=== PATIENT | male | born 1980 | race Caucasian/White ===

== ENCOUNTER 2017-04-12 16:52 | Emergency (ER) | payer MEDICAID ==
[~2017-04-12] VITALS: Ht 180.3 cm; Wt 106.0 kg
[2017-04-12 16:54] VITALS: BP 146/94; PULSE 88; RESP 20; TEMP 98.4; O2SAT 97
[2017-04-12] MEDS ORDERED: BACT800T5 PO (17:17)
[2017-04-12] MEDS ORDERED: CEPH500C PO (17:17)
[2017-04-12] MEDS ORDERED: CLOT1CRE8 TOPICAL (17:17)
--- NOTE | 2017-04-12 17:19 | PD ---
HPI Chief Complaint: Skin Problem Time Seen by Provider: 17:08 Travel History International Travel<30 days: No Contact w/Intl Traveler<30days: No Traveled to known affect area: No History of Present Illness HPI 36-year-old male presents to the emergency Department with complaint of a rash to his right foot 2 weeks. He said it started out being itchy. About a week ago the rash developed some blisters and some drainage. He was on vacation in [place] and the rash started and on his way back, about a week ago, he was seen in [place] at a hospital and was given prescriptions for oral antibiotics which she was unable to fill secondary to finances and cost of the prescriptions. Tetanus updated a week ago in [place]. He has been applying topical antibiotic ointment and doing Epson salt soaks with some improvement in the rash. He states it is still itchy. Denies fever, vomiting. Denies paresthesias, loss of sensation to the affected extremity. Has not tried taking any medications to alleviate his symptoms. No known allergies. Has no other medical complaints. No other modifying factors or associated signs and symptoms. PFSH Past Medical History Cardiovascular Problems: Yes (HTN) Social History Tobacco Use: No Allergies-Medications (Allergen,Severity, Reaction): Coded Allergies: No Known Allergies (Unverified , 04/12/17) Reported Meds & Prescriptions Reported Meds & Active Scripts Active Clotrimazole AF Topical (Clotrimazole) 1% Cream 1 Applic TOPICAL BID Cephalexin 500 Mg Cap 500 Mg PO Q6H 10 Days Bactrim DS (Sulfamethoxazole-Trimethoprim) 800-160 Mg Tab 1 Tab PO BID 10 Days Review of Systems Except as stated in HPI: all other systems reviewed are Neg Physical Exam Narrative GENERAL: Well-nourished, well-developed male patient, in no acute distress; afebrile, nontoxic-appearing SKIN: Warm and dry. Dorsal aspect of right foot, toes and in between the toes with areas of beefy-red erythemic areas; there are a couple areas that have pustules that are draining purulent drainage; rash appears to be consistent with tinea pedis with areas that appear infected; the foot is nonedematous and there is no sign of cellulitis; no lymphangitis. Right lower extremity is supple and nontense with 2+ pedal pulse and sensory intact. HEAD: Atraumatic. Normocephalic. EYES: Pupils equal and round. No scleral icterus. No injection or drainage. ENT: Mucosa pink and moist. Airway patent. NECK: Trachea midline. CARDIOVASCULAR: Regular rate. RESPIRATORY: No accessory muscle use. GASTROINTESTINAL: Obese. MUSCULOSKELETAL: No obvious deformities. No clubbing. No cyanosis. No edema. NEUROLOGICAL: Awake and alert. Oriented 3. No obvious cranial nerve deficits. Motor grossly within normal limits. Normal speech. PSYCHIATRIC: Appropriate mood and affect; insight and judgment normal. Data Data Last Documented VS Vital Signs Date Time Temp Pulse Resp B/P Pulse Ox O2 Delivery O2 Flow Rate FiO2 04/12/17 16:54 98.4 88 20 146/94 97 Room Air Orders Wound Culture And Gram Stain (04/12/17 17:19) [facility] Medical Decision Making Medical Screen Exam Complete: Yes Emergency Medical Condition: Yes Medical Record Reviewed: Yes Differential Diagnosis Tinea pedis, wound infection, infected blisters, skin yeast infection Narrative Course 36-year-old male physical exam consistent with tinea pedis of the right foot and skin infection. Up-to-date on tetanus. Patient is afebrile and nontoxic appearing. Denies fever, vomiting. Wound culture pending. Clotrimazole, Bactrim, Keflex prescribed for home. Instructed patient to follow up with podiatry as needed. Patient verbalizes understanding and agreement with treatment plan. Patient is medically cleared and stable for discharge. Discussed reasons to return to the emergency department. Instructed patient to follow up with primary care provider. Patient agrees with treatment plan. The patients vital signs are stable and the patient is stable for outpatient follow- up and treatment. Patient discharged home, stable and in no acute distress. Diagnosis Primary Impression: Tinea pedis of right foot Additional Impression: Skin infection Referrals: Care Analyst Primary Care Physician Patient Instructions: General Instructions, Tinea Pedis (ED), Wound Infection ( ED) Additional Instructions: Apply clotrimazole cream as prescribed Antibiotics as prescribed Keep rash clean and dry Keep rash open to air Ibuprofen or Tylenol as instructed and as needed for pain and inflammation Follow-up with podiatry Return to the emergency department immediately with worsening of symptoms Med/Other Pt SpecificInfo: Prescription(s) given Scripts Clotrimazole Topical (Clotrimazole AF Topical)1% Cream1 Applic TOPICAL BID #15 GM Ref 0 Prov:Lima Albert 04/12/17 Cephalexin 500 Mg [id number] Mg PO Q6H 10 Days Ref 0 Prov:Lima Albert 04/12/17 Sulfamethoxazole-Trimethoprim (Bactrim DS)800-160 Mg Tab1 Tab PO BID 10 Days Ref 0 Prov:Lima Albert 04/12/17 Disposition: 01 DISCHARGE HOME Condition: Stable Lima Albert April 12, 2017 17:19
== END 2017-04-12 17:40 | disposition home or self-care (01) ==
LOC: NEPK 16:52
DX: B35.3 Tinea pedis (principal); L08.9 Local infection of the skin and subcutaneous tissue, unspecified; B95.0 Streptococcus, group A, as the cause of diseases classified elsewhere
CPT/HCPCS: 86403; 87070; 87205; 99284